=== PATIENT | female | born 1970 | race Caucasian/White ===

== ENCOUNTER 2018-11-07 19:54 | Emergency (ER) | payer OTHER ==
[~2018-11-07] VITALS: Ht 162.6 cm; Wt 85.3 kg
[2018-11-07] MEDS ORDERED: OLANZAPINE 10 MG VIAL IM ONE ×2 (20:00→20:01)
[2018-11-07] MEDS ORDERED: ONDANSETRON HCL/PF 4 MG/2 ML VIAL IVP ONE (20:00)
[2018-11-07] MEDS ORDERED: diphenhydrAMINE HCL 50 MG/ML VIAL IM ONE (20:00)
[2018-11-07] MEDS ORDERED: IV NS 0.9% 1,000 ML BAG IV ONE (20:00)
[2018-11-07] MEDS ORDERED: LORAZEPAM INJ 2 MG/ML VIAL IM ONE (20:00)
[2018-11-07] MEDS ORDERED: diphenhydrAMINE HCL 50 MG/ML VIAL ONE (20:01)
[2018-11-07] MEDS ORDERED: LORAZEPAM INJ 2 MG/ML VIAL ONE (20:01)
--- NOTE | 2018-11-07 20:03 | NUR ---
PT PRESENTED TO ED WITH BIZARRE BEHAVIOR, RUNNING THROUGH THE HALLS ATTEMPTING TO FORCE HERSELF TO THROW UP. STATES SHE INGESTED EPSOM SALT. APPEARS VERY ANXIOUS. TO ER BED 5, ON MONITOR, READY FOR EVAL.
[2018-11-07 20:15] LABS: BASOPHILS # (AUTO) 0.1 /CMM (0.0-0.2); BASOPHILS % (AUTO) 0.5 % (0.0-2.0); HEMATOCRIT 41 % (33-45); HEMOGLOBIN 13.5 g/dL (11.5-14.8); LYMPHOCYTES # (AUTO) 1.7 /CMM (0.8-4.8); LYMPHOCYTES % (AUTO) 11.3 % (20.0-44.0); MEAN CORPUSCULAR HGB CONC 33 g/dl (31.0-36.0); MEAN CORPUSCULAR VOLUME 91 fL (82-100); MONOCYTES # (AUTO) 0.5 /CMM (0.1-1.30); MONOCYTES % (AUTO) 3.6 % (2.0-12.0); NEUTROPHILS # (AUTO) 12.9 /CMM (1.8-8.9); NEUTROPHILS % (AUTO) 84.6 % (43.0-81.0); PLATELET COUNT (AUTO) 458 /CMM (150-450); RED BLOOD CELL COUNT(AUTO) 4.55 MIL/uL (4.0-5.2); WHITE BLOOD COUNT (AUTO) 15.3 K/uL (4.3-11.0)
--- NOTE | 2018-11-07 20:24 | NUR ---
SPOKE TO OFFICER EDITH OF [facility] TO TAKE POSSESSION OF PTS DOG Addendum: 11/07/18 at 2025 by BRENDEN SPOKE TO OFFICER EDITH OF [facility]AL CONTROL TO TAKE POSSESSION OF PTS DOG
[2018-11-07 20:33] LABS: CALCIUM, SERUM 8.6 mg/dL (8.5-10.1); CARBON DIOXIDE 18 mmol/L (21-32); CHLORIDE 95 mmol/L (98-107); CREATININE 1.6 mg/dL (0.6-1.3); GLUCOSE 176 mg/dL (74-106); POTASSIUM 3.2 mmol/L (3.5-5.1); SODIUM SERUM 133 mmol/L (136-145); UREA NITROGEN, BLOOD 18 mg/dL (7-18)
[2018-11-07 20:36] LABS: ALANINE AMINOTRANSFERASE 26 U/L (12-78); ALBUMIN 3.9 g/dL (3.4-5.0); ALCOHOL, BLOOD < 3 mg/dL (0-0); ALKALINE PHOSPHATASE 90 U/L (46-116); ASPARTATE AMINOTRANSFERASE 24 U/L (15-37); BILIRUBIN,DIRECT 0.1 mg/dL (0.0-0.2); BILIRUBIN,TOTAL 0.6 mg/dL (0.2-1.0); SALICYLATE 3.9 mg/dL (2.8-20.0); TOTAL PROTEIN, SERUM 7.6 g/dL (6.4-8.2)
[2018-11-07 20:42] LABS: ACETAMINOPHEN < 2 ug/ml (10-30)
--- NOTE | 2018-11-07 20:42 | NUR ---
SPOKE TO STEPHANIE WITH POISON CONTROL CENTER: DOUBLE DOSE OF KEPPRA NOT LIKELY TO CAUSE ANY ADVERSE EFFECTS, MAINLY LOOKING FOR WALL INSULATION SPRAYER DEPRESSION OR HYPOTENSION. MAGNESIUM SULFATE FROM EPSOM SALTS MOST CONCERNING AND CAN CAUSE CARDIAC EFFECTS. CHECK MAG LEVEL EVERY 2-4 HOURS FOR DOWNWARD TREND. IV FLUIDS AND CHEM PANEL FOR ELECTROLYTES. BLOOD ALCOHOL LEVEL FOR HAND HELP DESK COORDINATOR INGESTION. SMALL AMOUNT INGESTED NOT LIKELY TO CAUSE ADVERSE EFFECTS.
[2018-11-07 20:45] LABS: THYROID STIMULATING HORMONE 3.454 uIU/mL (0.358-3.74)
--- NOTE | 2018-11-07 20:46 | NUR ---
PER STEPHANIE WITH POISON CONTROL URINE DRUG SCREEN RECOMMENDED AND REPEAT CHEM PANEL EVERY 2-4 HOURS
[2018-11-07] MEDS ORDERED: ONDANSETRON HCL/PF 4 MG/2 ML VIAL ONE (20:52)
[2018-11-07 21:04] LABS: ABG BASE EXCESS -2.2 mmol/L; ABG OXYGEN SATURATION 93.5 % (92.0-98.5); ABG PCO2 34.4 mmHg (35.0-45.0); ABG PH 7.416 (7.350-7.450); ABG PO2 68.7 mmHg (75.0-100.0); AaDO2 39.8 mmHg; COHb 0.5 % (0.5-1.5); MetHb 0.7 % (0.0-1.5); O2Hb 92.4 % (94.0-97.0); SITE, ABG Right Radial; VENT MODE, BG ROOM AIR
--- NOTE | 2018-11-07 21:55 | NUR ---
URINE COLLECTED AND SENT TO STAT LAB
--- NOTE | 2018-11-07 22:03 | NUR ---
PT RESTING COMFORTABLY IN BED. NO COMPLAINTS AT THIS TIME. VSS, WILL CONT TO MONITOR.
[2018-11-07 22:14] LABS: APPEARANCE,URINE Clear (CLEAR); BILIRUBIN,URINE Negative (NEGATIVE); BLOOD, URINE Negative Ery/uL (NEGATIVE); COLOR,URINE Yellow (YELLOW); KETONES,URINE Negative (NEGATIVE); LEUKOCYTE ESTERASE ,URINE Negative (NEGATIVE); NITRITE, URINE Negative (NEGATIVE); PROTEIN,URINE Negative (NEGATIVE); UGLUCOSE Negative (NEGATIVE); UROBILINOGEN,URINE 0.2 EU/dL (0.2)
[2018-11-07 22:21] LABS: CALCIUM, SERUM 8.2 mg/dL (8.5-10.1); CREATININE 1.2 mg/dL (0.6-1.3); MAGNESIUM 1.7 mg/dL (1.8-2.4); POTASSIUM 3.4 mmol/L (3.5-5.1)
--- NOTE | 2018-11-07 23:30 | NUR ---
ER TECHS AT BEDSIDE ASSISTING PT ON BEDPAN
--- NOTE | 2018-11-07 23:43 | NUR ---
SPOKE WITH POISON CONTROL, UPDATE GIVEN. ADVISED US TO REPEAT SALICYLATES AND MAG LEVELS AND CALL BACK FOR ANY QUESTIONS.
--- NOTE | 2018-11-08 03:44 | NUR ---
PT AMBULATORY WITH STEADY GAIT TO RESTROOM. PT CALM AND COOPERATIVE. DENIES SI HI.
--- NOTE | 2018-11-08 06:32 | NUR ---
PT OK TO DISCHARGE PER DR ANDERSEN. IV removed. Catheter intact and site benign. Pressure and 4x4 applied to site. No bleeding noted.Patient discharged to home in stable condition. Written and verbal after care instructions given. Patient verbalizes understanding of instruction.Patient is awake and alert to self, day, and place. PT ambulatory with a steady gait
[2018-11-08 06:34] VITALS: BP 125/77
== END 2018-11-08 06:34 | disposition home or self-care (01) ==
LOC: ER 19:57 → EDBD 19:57 → ER 11-08 06:34
DX: R46.1 Bizarre personal appearance (principal); T47.3X1A Poisoning by saline and osmotic laxatives, accidental (unintentional), initial encounter; Y92.89 Other specified places as the place of occurrence of the external cause
CPT/HCPCS: 36415; 36600 ×2; 71045; 80048 ×2; 80076; 80305; 80307; 80329; 81001; 82803; 83735 ×2; 84443; 84703; 85025; 93005; 96372 ×2; 96374; 99284; G0480; J1200; J2060; J2405; J3490; J7030; 81000-TC

== ENCOUNTER 2018-11-30 13:04 | Emergency (ER) | payer OTHER ==
[~2018-11-30] VITALS: Ht 167.6 cm; Wt 126.1 kg
--- NOTE | 2018-11-30 13:25 | NUR ---
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 PT IS ALERT AND ORIENTED, C/O L SHOULDER PAIN, BG 118, TO ER BED 9, HOOKED TO MONITOR, CHANGED TO GOWN, PROVIDED W WARM BLANKET, AWAITING MD COY.
--- NOTE | 2018-11-30 14:32 | NUR ---
JESUS PITTMAN MD AT BEDSIDE
[2018-11-30 14:58] LABS: BASOPHILS # (AUTO) 0.1 /CMM (0.0-0.2); BASOPHILS % (AUTO) 0.6 % (0.0-2.0); EOSINOPHILS % (AUTO) 0.4 % (0.0-6.0); HEMATOCRIT 42 % (33-45); HEMOGLOBIN 14.1 g/dL (11.5-14.8); LYMPHOCYTES # (AUTO) 1.5 /CMM (0.8-4.8); LYMPHOCYTES % (AUTO) 11.1 % (20.0-44.0); MEAN CORPUSCULAR HGB CONC 33 g/dl (31.0-36.0); MEAN CORPUSCULAR VOLUME 89 fL (82-100); MONOCYTES # (AUTO) 0.6 /CMM (0.1-1.30); MONOCYTES % (AUTO) 4.9 % (2.0-12.0); PLATELET COUNT (AUTO) 389 /CMM (150-450); RED BLOOD CELL COUNT(AUTO) 4.75 MIL/uL (4.0-5.2); WHITE BLOOD COUNT (AUTO) 13.3 K/uL (4.3-11.0)
[2018-11-30] MEDS ORDERED: IV NS 0.9% 1,000 ML BAG IV ONE (15:00)
[2018-11-30] MEDS ORDERED: FOSPHENYTOIN SODIUM PE 100 MG/2 ML VIAL IM ONE (15:00)
[2018-11-30 15:02] LABS: CALCIUM, SERUM 9.1 mg/dL (8.5-10.1); CREATININE 0.9 mg/dL (0.6-1.3); POTASSIUM 4.2 mmol/L (3.5-5.1)
[2018-11-30 15:07] LABS: ALBUMIN 3.5 g/dL (3.4-5.0); BILIRUBIN,DIRECT 0.1 mg/dL (0.0-0.2); BILIRUBIN,TOTAL 0.2 mg/dL (0.2-1.0); TOTAL PROTEIN, SERUM 7.2 g/dL (6.4-8.2)
--- NOTE | 2018-11-30 15:20 | NUR ---
PT NOT ABLE TO PROVIDE URINE SAMPLE, MADE AWARE
[2018-11-30] MEDS ORDERED: DIAZEPAM 5 MG TABLET ONE (15:47)
--- NOTE | 2018-11-30 15:58 | NUR ---
Patient discharged to home in stable condition. Written and verbal after care instructions given. Patient verbalizes understanding of instruction.
[2018-11-30 16:00] VITALS: BP 127/78
[2018-11-30] MEDS ORDERED: DIAZEPAM 10 MG TABLET PO ONE (16:00)
== END 2018-11-30 16:02 | disposition home or self-care (01) ==
LOC: ER 13:09
DX: R56.9 Unspecified convulsions (principal); M25.512 Pain in left shoulder; W18.39XA Other fall on same level, initial encounter; Y93.89 Activity, other specified; Y92.89 Other specified places as the place of occurrence of the external cause; Y99.8 Other external cause status
CPT/HCPCS: 36415; 80048-TC; 80076-TC; 83605-TC; 85025-TC